=== PATIENT | female | born 1945 | race Caucasian/White ===

== ENCOUNTER 2021-10-06 06:05 | Day surgery (SDC) | payer OTHER ==
[2021-10-01 16:04] VITALS: BMI 25.3
[2021-10-06] MEDS ORDERED: CELECOXIB 200 MG CAPSULE ONE (06:42)
[2021-10-06] MEDS ORDERED: BUPIVACAINE LIPOSOME/PF (EXPAREL) 266 MG/20 ML VIAL ONE (06:49)
[2021-10-06] MEDS ORDERED: BUPIVACAINE HCL 50 ML ONE (06:50)
[2021-10-06] MEDS ORDERED: SODIUM CHLORIDE 0.9% P/F 10 ML VIAL IJ ONE (06:50)
[2021-10-06] MEDS ORDERED: MIDAZOLAM HCL 2 MG/2 ML SINGLE DOSE VIAL ONE (06:50)
[2021-10-06] MEDS ORDERED: VANCOMYCIN 1,000 MG VIAL (RESTRICTED TO ID ONLY) ONE (07:08)
[2021-10-06] MEDS ORDERED: ceFAZolin SODIUM 1 GM VIAL ONE ×4 (07:08→22:26)
[2021-10-06] MEDS ORDERED: ONDANSETRON 4 MG/2 ML VIAL ONE (07:10)
[2021-10-06] MEDS ORDERED: LIDOCAINE HCL/PF 2% SDV 5ML VIAL ONE (07:10)
[2021-10-06] MEDS ORDERED: TRANEXAMIC ACID 1000 MG/10 ML VIAL ONE (07:10)
[2021-10-06] MEDS ORDERED: PROPOFOL 20 ML ONE ×3 (07:11→08:49)
[2021-10-06] MEDS ORDERED: ACETAMINOPHEN 1000 MG/100 ML BAG IVPB ONE ×2 (07:35→10:45)
[2021-10-06] MEDS ORDERED: oxyCODONE HCL 5 MG TABLET PO PRN (07:35)
[2021-10-06] MEDS ORDERED: ONDANSETRON 4 MG/2 ML VIAL IVPUSH PRN ×2 (07:35→23:48)
[2021-10-06] MEDS ORDERED: CEFAZOLIN 2 GM in DEXTROSE 5%-WATER - 50 ML IVPB ONE (08:00)
[2021-10-06] MEDS ORDERED: CELECOXIB 200 MG CAPSULE PO ONE (08:00)
[2021-10-06] MEDS ORDERED: LORATADINE 10 MG TABLET PO PRN (08:02)
[2021-10-06] MEDS ORDERED: LACTATED RINGERS SOLUTION 1,000 ML IV SCH (08:15)
[2021-10-06] MEDS ORDERED: TRANEXAMIC ACID 1000 MG/10 ML VIAL IVPUSH ONE (09:00)
[2021-10-06] MEDS ORDERED: VANCOMYCIN 1,000 MG VIAL (RESTRICTED TO ID ONLY) IVPB ONE (09:29)
[2021-10-06] MEDS ORDERED: PATIENT'S OWN MEDICATION (NON-FORMULARY) (Multivitamin [Multivitamin] 1 EACH Tablet) PO SCH (10:00)
[2021-10-06] MEDS: LACTATED RINGERS SOLUTION 1,000 ML IV SCH (11:00)
[2021-10-06] MEDS: FERROUS SO4 325 MG TABLET (FP) PO SCH (13:29)
[2021-10-06] MEDS: oxyCODONE HCL 10 MG SUSTAINED ACTING TABLET PO SCH ×2 (13:29→22:31)
[2021-10-06] MEDS: MULTIVITAMINS (DAILY MVI) TABLET (FP) PO SCH (13:30)
[2021-10-06] MEDS: PANTOPRAZOLE 40 MG TABLET PO SCH (13:30)
[2021-10-06] MEDS: SENNOSIDES/DOCUSATE COMBO (SENNA PLUS) TABLET (UD) PO SCH ×2 (13:30→21:22)
[2021-10-06] MEDS ORDERED: DEXTROSE 5%-WATER - 50 ML IVPB ONE ×2 (16:06→22:26)
[2021-10-06] MEDS: oxyCODONE HCL 5 MG TABLET PO PRN ×2 (16:15→20:54)
[2021-10-06] MEDS: CEFAZOLIN 2 GM in DEXTROSE 5%-WATER - 50 ML IVPB SCH ×2 (16:18→23:49)
[2021-10-06] MEDS: ACETAMINOPHEN 500 MG TABLET (FP) PO SCH ×2 (18:26→23:49)
[2021-10-06] MEDS: ROSUVASTATIN CA 10 MG TABLET PO SCH (21:22)
[2021-10-06] MEDS ORDERED: DEXAMETHASONE SOD PHOSPHATE 4 MG/1 ML VIAL IVPUSH PRN (23:48)
[2021-10-06] MEDS ORDERED: PROMETHAZINE HCL 25 MG/1 ML VIAL IVPB PRN (23:48)
[2021-10-07] MEDS: HYDROmorphone *PCA* 10MG/50ML DISP.SYRIN PCA SCH ×2 (00:31→23:45)
[2021-10-07] MEDS: ACETAMINOPHEN 500 MG TABLET (FP) PO SCH ×3 (06:50→18:03)
[2021-10-07] MEDS ORDERED: ONDANSETRON *ODT* 4 MG TABLET SL PRN (07:07)
[2021-10-07] MEDS: ASPIRIN 325 MG TABLET PO SCH (08:34)
[2021-10-07] MEDS: LACTATED RINGERS SOLUTION 1,000 ML IV SCH (08:42)
[2021-10-07] MEDS: MULTIVITAMINS (DAILY MVI) TABLET (FP) PO SCH (09:12)
[2021-10-07] MEDS: PANTOPRAZOLE 40 MG TABLET PO SCH (09:12)
[2021-10-07] MEDS: FERROUS SO4 325 MG TABLET (FP) PO SCH (09:12)
[2021-10-07] MEDS: SENNOSIDES/DOCUSATE COMBO (SENNA PLUS) TABLET (UD) PO SCH ×2 (09:12→21:19)
[2021-10-07 09:40] LABS: MCH 31.3 pg (25.7-33.7); MCHC 34.6 g/dl (32.0-36.0); MEAN CELL VOLUME 90.5 fl (80-96); MEAN PLT VOLUME 8.3 fl (7.5-11.1); PLATELET COUNT 209 10^3/uL (134-434); RBC 3.21 M/mm3 (3.60-5.2); RDW 13.6 % (11.6-15.6); WHITE BLOOD COUNT 10.4 K/mm3 (4.0-10.0)
[2021-10-07] MEDS: MAG HYDROX/AL HYDROX/SIMETH 30 ML UNIT-DOSE CUP PO PRN (16:50)
[2021-10-07] MEDS: ROSUVASTATIN CA 10 MG TABLET PO SCH (21:19)
[2021-10-08] MEDS: ACETAMINOPHEN 500 MG TABLET (FP) PO SCH ×2 (00:07→06:39)
[2021-10-08] MEDS: MAG HYDROX/AL HYDROX/SIMETH 30 ML UNIT-DOSE CUP PO PRN (00:55)
[2021-10-08 08:18] LABS: HEMATOCRIT 26.6 % (32.4-45.2); HEMOGLOBIN 9.3 GM/dL (10.7-15.3); MCH 31.5 pg (25.7-33.7); MCHC 35.1 g/dl (32.0-36.0); MEAN CELL VOLUME 89.7 fl (80-96); MEAN PLT VOLUME 8.7 fl (7.5-11.1); PLATELET COUNT 193 10^3/uL (134-434); RBC 2.97 M/mm3 (3.60-5.2); RDW 13.6 % (11.6-15.6); WHITE BLOOD COUNT 10.2 K/mm3 (4.0-10.0)
[2021-10-08] MEDS: ASPIRIN 325 MG TABLET PO SCH (08:28)
[2021-10-08] MEDS: MULTIVITAMINS (DAILY MVI) TABLET (FP) PO SCH (09:38)
[2021-10-08] MEDS: FERROUS SO4 325 MG TABLET (FP) PO SCH (09:38)
[2021-10-08] MEDS: PANTOPRAZOLE 40 MG TABLET PO SCH (09:38)
[2021-10-08] MEDS: SENNOSIDES/DOCUSATE COMBO (SENNA PLUS) TABLET (UD) PO SCH (09:38)
[2021-10-08 09:42] VITALS: BP 109/47; PULSE 92; TEMP 98
== END 2021-10-08 12:17 | disposition home health service (06) ==
LOC: FASUSAT 06:05 → EDSTATUS 09:30 → FM/S 12:21 → FASUSAT 10-08 12:17
PROVIDERS: ATTEND Orthopaedic Surgery
PROC: 8E0YXBZ Computer Assisted Procedure of Lower Extremity (ICD-10-PCS; 2021-10-06)
PROC: 8E0Y0CZ Robotic Assisted Procedure of Lower Extremity, Open Approach (ICD-10-PCS; 2021-10-06)
PROC: 0SRC0J9 Replacement of Right Knee Joint with Synthetic Substitute, Cemented, Open Approach (ICD-10-PCS; principal; 2021-10-06 08:30)
DX: M17.11 Unilateral primary osteoarthritis, right knee (principal)
CPT/HCPCS: 20985; 27447; C1776; S2900; 36415; 73560-TC-RT-FY; 85027; 94760; 97010-GP; 97116-GP; 97162-GP